=== PATIENT | male | born 1975 | race Caucasian/White ===

== ENCOUNTER 2023-10-27 23:53 | Emergency (ER) | payer OTHER ==
[~2023-10-27] VITALS: Ht 182.9 cm; Wt 79.5 kg
[2023-10-28 00:04] VITALS: BP 128/90; PULSE 63; RESP 16; TEMP 98.8; O2SAT 100
== END 2023-10-28 00:45 ==
LOC: ER 23:54
DX: M25.562 Pain in left knee (principal); R51.9 Headache, unspecified
CPT/HCPCS: 73564; 99283